=== PATIENT | male | born 2000 | race African-American/Black ===

== ENCOUNTER 2020-04-15 15:23 | Emergency (ER) | payer MEDICAID ==
[~2020-04-15] VITALS: Ht 162.6 cm; Wt 65.9 kg
[2020-04-15] MEDS ORDERED: POVIDONE-IODINE 10% 15 ML SOLUTION UD TP ONE (16:00)
[2020-04-15] MEDS ORDERED: LIDOCAINE 1% 10 ML VIAL SQ ONE (16:00)
[2020-04-15] MEDS ORDERED: PERTUSS(ACELL),DIPH,TET VAC/PF 0.5 ML VIAL IM ONE (16:00)
[2020-04-15] MEDS ORDERED: BACITRACIN 0.9 GM PACKET OINTMENT TP ONE (16:00)
[2020-04-15 18:09] VITALS: BP 121/57
== END 2020-04-15 18:18 | disposition home or self-care (01) ==
LOC: EMS 15:23
DX: S31.31XA Laceration without foreign body of scrotum and testes, initial encounter (principal); W22.8XXA Striking against or struck by other objects, initial encounter; Y93.51 Activity, roller skating (inline) and skateboarding; Y92.89 Other specified places as the place of occurrence of the external cause; Y99.8 Other external cause status
CPT/HCPCS: 12001; 76870; 90471; 90715; 99284; J3490

== ENCOUNTER 2020-04-17 09:45 | Emergency (ER) | payer MEDICAID ==
[~2020-04-17] VITALS: Ht 162.6 cm; Wt 65.9 kg
[2020-04-17 09:46] VITALS: BP 109/71
[2020-04-17] MEDS ORDERED: IBUPROFEN 600 MG TABLET PO ONE (10:30)
== END 2020-04-17 10:46 | disposition home or self-care (01) ==
LOC: EMS 09:45
DX: S31.31XD Laceration without foreign body of scrotum and testes, subsequent encounter (principal); X58.XXXD Exposure to other specified factors, subsequent encounter
CPT/HCPCS: 99282; Z7502; Z7610